=== PATIENT | male | born 1995 | race Caucasian/White ===

== ENCOUNTER 2022-02-16 19:31 | Emergency (ER) | payer OTHER ==
[~2022-02-16] VITALS: Ht 185.4 cm; Wt 97.7 kg
[2022-02-16 20:53] VITALS: BP 146/85
== END 2022-02-16 21:45 | disposition home or self-care (01) ==
LOC: EMS 19:31
DX: Z03.821 Encounter for observation for suspected ingested foreign body ruled out (principal)
CPT/HCPCS: 74018; 99283